=== PATIENT | male | born 1975 | race Two or more races ===

== ENCOUNTER 2023-03-29 15:37 | Emergency (ER) | payer OTHER ==
[~2023-03-29] VITALS: Ht 180.3 cm; Wt 149.7 kg
[2023-03-29] MEDS ORDERED: INTESTINEX680 M1 PO (21:20)
[2023-03-29] MEDS ORDERED: DICY20TA PO (21:20)
[2023-03-29] MEDS ORDERED: MOXIFLOXACIN H400 MG PO (21:20)
== END 2023-03-29 21:25 | disposition home or self-care (01) ==
LOC: ER 15:37
PROVIDERS: General Practice
DX: K57.32 Diverticulitis of large intestine without perforation or abscess without bleeding (principal); R16.2 Hepatomegaly with splenomegaly, not elsewhere classified; I10 Essential (primary) hypertension; E66.01 Morbid (severe) obesity due to excess calories